=== PATIENT | male | born 1965 | race Caucasian/White ===

== ENCOUNTER → 2019-03-10 06:34 | Outpatient (CLI) | payer OTHER, SELFPAY ==
--- NOTE | 2019-03-10 | DI.MRI.S_ITS ---
PROCEDURE: MR KNEE RT WO CON INDICATIONS: PAIN AND SWELLING TECHNIQUE: Noncontrast sagittal PD fast spin echo and T2 fast spin echo with fat saturation, sagittal 3-D FLASH with fat saturation; coronal T1 spin echo and PD fast spin echo with fat saturation, and axial PD fast spin echo with fat saturation through the knee. COMPARISON: None. FINDINGS: Image quality: Excellent. Menisci: Lateral meniscus appears grossly intact. Medial meniscal tear involving the body with abnormal signal extending to the undersurface. There is also truncation of the free margin of the body Cruciate ligaments: The anterior and posterior cruciate ligaments appear intact. Medial structures: The medial collateral ligament appears intact. Mild semimembranosus insertional tendinopathy. Visualized portions of the pes anserinus tendons appear normal. No abnormal bursal fluid. Lateral structures: The lateral collateral ligament, long and short heads of the biceps femoris tendon appear intact. The popliteus tendon appears normal; the popliteofibular ligament appears intact. The posterosuperior and anteroinferior popliteomeniscal fascicles appear intact. The arcuate and fabellofibular ligaments appear intact, on either side of the lateral inferior geniculate artery. Iliotibial band appears normal. Anterior structures: Quadriceps tendon intact. Thickening of the patellar attachment of the lateral patellofemoral ligament. The medial patellofemoral ligament appears grossly intact There is mild to moderate patellar tendinopathy. Prepatellar and superficial infrapatellar subcutaneous edema/fluid. There is also deep infrapatellar bursal fluid raises the possibility of bursitis Bones and cartilage: No focal marrow contusion or discrete low signal fracture line. Within the medial compartment, mild diffuse partial thickness loss of the femoral and tibial cartilage Within the lateral compartment, grossly intact articular cartilage Within the patellofemoral compartment, diffuse surface fraying of the patellar and femoral trochlear cartilage Joint space: Trace joint effusion. No Stephens's cyst. 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 Thickening of the patellar attachment of the lateral patellofemoral ligament suggests chronic sprain/partial rupture. Medial meniscal tear involving the body Mild joint degeneration. Patellar tendinopathy, versus acute sprain. Dictated by: Bob Birmingham M.D. on 03/10/2019 at 9:58 Approved by: Bob Birmingham M.D. on 03/10/2019 at 10:10
== END ==
PROVIDERS: PCP Family Medicine; Visit Provider Family Medicine
DX: M25.561 Pain in right knee (principal); M25.461 Effusion, right knee; S83.241A Other tear of medial meniscus, current injury, right knee, initial encounter; M17.11 Unilateral primary osteoarthritis, right knee
CPT/HCPCS: 73721

== ENCOUNTER → 2020-08-10 08:27 | Outpatient (CLI) | payer OTHER, SELFPAY ==
--- NOTE | 2020-08-10 | DI.MRI.S_ITS ---
PROCEDURE: MR SHOULDER LT WO CON INDICATIONS: PAIN IN LEFT SHOULDER TECHNIQUE: Noncontrast oblique coronal T2 fast spin echo with fat saturation, oblique sagittal T1 spin echo and T2 fast spin echo with fat saturation, axial T1 spin echo and T2 fast spin echo with fat saturation through the shoulder. COMPARISON: None. FINDINGS: Image quality: Excellent. Rotator cuff: Supraspinatus tendinopathy with partial thickness bursal sided tear and low-grade articular surface fraying. There is infraspinatus tendinopathy, with low-grade articular and bursal surface fraying. Teres minor tendon appears intact. Subscapularis tendinopathy and thickening is present. There is low-grade articular surface fraying. Fatty infiltration of the infraspinatus and teres minor muscles. No definite atrophy of the rotator cuff muscles. Bones and bursae: No bone marrow contusions or fractures. Moderate hypertrophic acromioclavicular joint degeneration. Acromion demonstrates conventional anatomy, without an os acromiale. Moderate subacromial-subdeltoid bursitis. Capsule and soft tissues: Labrum: Ill-defined macerated appearing tear of the superior and posterior labrum there is also fraying of the inferior labrum. No definite posterior subluxed appearance of the humeral head relative to the glenoid to suggest microinstability. Chronic glenoid rim segmental sclerosis and spurring at the posterior superior aspect. There is slight bucket-handle appearance of the superior labral tear although very poorly defined. Long head biceps tendinopathy The rotator interval appears normal, without fibrosis. Coracohumeral ligament intact. IMPRESSION: Supraspinatus tendinopathy partial-thickness bursal sided tear and low-grade articular surface fraying Infraspinatus tendinopathy with low-grade articular and bursal surface tearing paragraphs subscapularis tendinopathy and low-grade articular surface fraying Moderate subacromial-subdeltoid bursitis Ill-defined tear of the labrum, as described above in detail. Dictated by: Bob Birmingham M.D. on 08/12/2020 at 8:35 Approved by: Bob Birmingham M.D. on 08/12/2020 at 8:41
== END ==
PROVIDERS: PCP Family Medicine; Referring Provider Family Medicine; Visit Provider Family Medicine
DX: M25.512 Pain in left shoulder (principal); M75.112 Incomplete rotator cuff tear or rupture of left shoulder, not specified as traumatic; M75.52 Bursitis of left shoulder
CPT/HCPCS: 73221

== ENCOUNTER → 2020-12-23 09:36 | Outpatient (CLI) | payer OTHER, SELFPAY ==
--- NOTE | 2020-12-23 | DI.MRI.S_ITS ---
PROCEDURE: MR KNEE RT WO CON INDICATIONS: Complex tear of medial meniscus, current injury, r TECHNIQUE: Noncontrast sagittal PD fast spin echo and T2 fast spin echo with fat saturation, sagittal 3-D FLASH with fat saturation; coronal T1 spin echo and PD fast spin echo with fat saturation, and axial PD fast spin echo with fat saturation through the knee. COMPARISON: [facility], MR, MR KNEE RT WO CON, 03/10/2019, 6:51. [facility], CR, XR KNEE ARTHRITIC SERIES RT, 12/03/2020, 8:52. FINDINGS: Image quality: Excellent. Menisci: Truncation of the free edge of the anterior horn, body, and posterior horn medial meniscus is present, indicating radial tearing. Lateral meniscus is intact. Cruciate ligaments: The anterior and posterior cruciate ligaments appear intact. Medial structures: The medial collateral ligament appears intact. Visualized portions of the pes anserinus tendons appear normal. No abnormal bursal fluid. Lateral structures: The lateral collateral ligament demonstrates mild T2 signal elevation at the femoral origin. The alea and short heads of the biceps femoris tendon appear intact. The popliteus tendon appears normal. Iliotibial band appears normal. Anterior structures: The quadriceps and patellar tendons appear intact. Mild T2 signal elevation within the quadriceps and patellar tendons at the patellar insertion sites. Patellar alignment is normal. No femoral trochlear dysplasia or ventral trochlear prominence. No edema in the infrapatellar fat pad. Bones and cartilage: No bone marrow contusions or fractures. Bipartite superolateral patella. Moderate articular cartilage loss diffusely overlies the weight-bearing aspects of the medial femoral condyle and medial tibial plateau. Mild articular cartilage loss diffusely overlies the medial and lateral patellar facets. Joint space: There is physiologic knee joint fluid. No Stephens's cyst. Small ganglion cyst along the popliteus. Normal appearing synovial plicae are incidentally noted. IMPRESSION: 1. Medial meniscal tear. 2. Quadriceps and patellar tendinopathy. 3. Medial and patellofemoral compartment articular cartilage loss. 4. Small ganglion cyst along the popliteus. Dictated by: Jes Frost M.D. on 12/23/2020 at 11:34 Approved by: Jes Frost M.D. on 12/23/2020 at 11:37
[2020-12-23 13:35] LABS: COVID19 -Nasal RAPID Negative (Negative)
== END ==
PROVIDERS: PCP Family Medicine; Referring Provider Orthopaedic Surgery; Visit Provider Orthopaedic Surgery
DX: S83.231D Complex tear of medial meniscus, current injury, right knee, subsequent encounter (principal); M67.461 Ganglion, right knee; X58.XXXD Exposure to other specified factors, subsequent encounter
CPT/HCPCS: 73721; 87635

== ENCOUNTER 2024-07-28 08:20 | Day surgery (SDC) | payer OTHER, SELFPAY ==
--- NOTE | 2024-07-28 | PATH_ITS ---
[facility] Accession Number: [id number] No. of containers..01 Tissue . 01 Material submitted: . rectum - RECTAL POLYPS . 01 Diagnosis: RECTAL POLYPS: Hyperplastic polyp x1. Vegetable material. MRV 07/31/2024 1532 Local . 01 Electronically signed: . Bhavin Wright MD, PhD, Pathologist NPI- [id number] . 01 Gross description: . Received in formalin, labeled with two patient identifiers and rectal polyps, is a single lin soft tissue fragment measuring 0.3 cm in greatest dimension with three lin to brown fragments of possible debris ranging from 0.3 cm to 0.6 cm in greatest dimension. All submitted in cassette A1. ([id number]) /R 07/29/2024 1103 Local . 01 Pathologist provided ICD-10: K62.1 . 01 CPT . 118888 Specimen Comment: A courtesy copy of this report has been sent to [facility] Pathology Performed at: [address] [address], [place], [place] [id number] MD Micah Hernandez MD Phone: [phone]
[2024-07-28] MEDS: LACTATED RINGERS 1,000 ML 100 ML IV (08:39)
[2024-07-28 08:48] VITALS: BP 145/91; PULSE 91; RESP 18; TEMP 36.6; O2SAT 98
--- NOTE | 2024-07-28 09:23 | PM.HP.IH.1 ---
History of Present Illness History of Present Illness Date Patient Seen: 07/28/24 Time Patient Seen: 09:23 Chief complaint: SDC Narrative: 59-year-old white male presents for initial screening colonoscopy. No family history of colon cancer, Crohn's disease or ulcerative colitis. No changes in bowel habits [facility] Medical History (Updated 07/28/24 @ 09:25 by Valdez Chavis MD) Colon cancer screening Social History Smoking Status: Never smoker alcohol intake: current Meds Home Medications and Allergies Home Medications Medication Instructions Recorded Confirmed Type sodium,potassium,mag sulfates 17.5 See Rx Instructions PO .COMPLEX 06/29/24 Rx gram-3.13 gram-1.6 gram oral soln #354 mL (Suprep Bowel Prep Kit) aspirin 81 mg tablet,delayed 81 mg PO DAILY 07/28/24 07/28/24 History release metformin 500 mg tablet,extended 500 mg PO DAILY 07/28/24 07/28/24 History release 24 hr Allergies Allergy/AdvReac Type Severity Reaction Status Date / Time No Known Drug Allergies Allergy Verified 07/28/24 08:56 Review of Systems Review of Systems ROS: Yes All systems reviewed with the patient and are negative except as otherwise documented Exam Vital Signs (past 8 hours): - 07/28/24 08:48 Temperature 98 F Pulse Rate 91 H Respiratory Rate 18 Blood Pressure 145/91 H Pulse Oximetry 98 Oxygen Delivery Method Room Air Oxygen Delivery Method Room Air Narrative Exam Narrative: Gen: NAD, sitting comfortably in bed, appears well HEENT: Sclera are anicteric, head is normocephalic and atraumatic, trachea is midline. CV: RRR, no JVD Resp: clear to auscultation bilaterally, equal chest wall movement bilaterally Abd: soft, nontender, normoactive bowel sounds Ext: no edema, full range of motion Neuro: Cranial nerves II-XII grossly intact, no focal deficits Skin: No erythema or ecchymosis Assessment & Plan Assessment and plan (1) Colon cancer screening: Status: Acute Assessment & Plan narrative: Patient presents for colonoscopy Risks, benefits, alternatives to colonoscopy explained, including but not limited to bowel perforation or other serious complication requiring surgery at less than 1 in 5000 colonoscopies, abdominal pain, cramping or bleeding and less than 1% of colonoscopies, and the chances that we find a diagnosis that would require further intervention of about 2%. Patient agrees to proceed. Time-Based Coding :: [TOTAL MINUTES] spent with patient and on the chart (including review of chart, obtaining history, exam, reviewing outside data, placing orders, documenting exam and treatment plan, and counseling patient) on [DATE]. [employer] Document charge(s): No
--- NOTE | 2024-07-28 09:49 | PM.OP.COLON ---
Operative Date/Time/Diagnoses Date of procedure: 07/28/24 Time of procedure: 09:50 Pre-op diagnosis: Colon screening Post-op diagnosis: same (Benign rectal polyps) Procedure & Clinicians Study performed: Colonoscopy with cold snare polypectomy rectal polyps x2 Same procedure as scheduled: Yes Indications: Colon screening Surgeon: Valdez Chavis Procedure Notes SCOAP/Timeout: Performed Procedure in detail: Time-out was performed. Mac was induced. Patient was placed in left lateral decubitus position. The perineum was inspected without any gross abnormality. Lubricated pediatric colonoscope was inserted and advanced to the cecum. The terminal ileum was intubated. The colonoscope was withdrawn slowly inspecting the circumference of the colon. Two very small polyps were noted in the rectum, removed with cold snare polypectomy. These were completely removed and retrieved. They were benign appearing. Very small polyps may have been missed, prep quality was adequate. Retroflexed view of the rectum showed small, non prolapsed nonbleeding internal hemorrhoids. The scope was withdrawn the patient was taken to PACU in good condition. Scope withdrawal time: 11 Sedation minutes: 21 Findings: internal hemorrhoids and polyp(s) Specimen(s): other (1. Rectal polyps x2) Complications: none Impression: Benign-appearing polyps Post-procedure Recommendations: Colonoscopy in 10 years (Next colonoscopy in 7 year) Follow up: as needed Disposition: PACU
[2024-07-28 09:52] VITALS: BP 117/66; PULSE 87; RESP 14; TEMP 36.1; O2SAT 95
[2024-07-28 09:56] VITALS: BP 118/66; PULSE 86; RESP 14; O2SAT 98
[2024-07-28 10:01] VITALS: BP 118/71; PULSE 88; RESP 14; O2SAT 96
[2024-07-28 10:05] VITALS: BP 130/76; PULSE 85; RESP 14; TEMP 36.1; O2SAT 96
== END 2024-07-28 10:15 | disposition home or self-care (01) ==
PROVIDERS: PCP Family Medicine; Referring Provider Surgery; Visit Provider Surgery
PROC: 0DJD8ZZ Inspection of Lower Intestinal Tract, Via Natural or Artificial Opening Endoscopic (ICD-10-PCS; CPT 45378; principal; 2024-07-28 09:30)
DX: Z12.11 Encounter for screening for malignant neoplasm of colon (principal); K64.8 Other hemorrhoids; K62.1 Rectal polyp
CPT/HCPCS: 45385; J2704

== ENCOUNTER → 2024-08-25 06:53 | Outpatient (CLI) | payer OTHER, SELFPAY ==
--- NOTE | 2024-08-25 06:55 | DI.CT.S_ITS ---
PROCEDURE: CT SINUS SCREEN WO CON INDICATIONS: CHRONIC OR RECURRENT SINUSITIS/RHINOSINUSITIS TECHNIQUE: Noncontrast 3.0 mm axial images acquired from the frontal sinuses to the mid-sella, with coronal and sagittal reformats. For radiation dose reduction, the following was used: automated exposure control, adjustment of mA and/or kV according to patient size. COMPARISON: None. FINDINGS: Image quality: Excellent. Sinuses: There is complete occlusion of the right maxillary sinus extending to the ethmoid air cells. There is significant mucosal thickening in the right frontal sinus. Mild mucosal thickening is present in the left maxillary sinus with scattered areas of mild mucosal thickening in the left frontal sinus as well as left ethmoid air cells. Minimal sphenoid sinus mucosal thickening is present. No fluid levels. Ostiomeatal Complexes: There is complete occlusion of the right ostiomeatal complex. Left side is patent. Miscellaneous: Visualized intra-orbital contents are normal. No karen bullosa or paradoxical turbinate curvature. Leftward nasal septal deviation. IMPRESSION: Prominent mucosal thickening particularly within the right-sided sinuses as above with occlusion of the right ostiomeatal complex. Dictated by: Letty Stein M.D. on 08/25/2024 at 16:48 Approved by: Letty Stein M.D. on 08/25/2024 at 16:51
== END ==
PROVIDERS: Referring Provider Otolaryngology; Visit Provider Otolaryngology
DX: J32.4 Chronic pansinusitis (principal); J34.2 Deviated nasal septum; J34.89 Other specified disorders of nose and nasal sinuses
CPT/HCPCS: 70486

== ENCOUNTER → 2024-09-22 06:53 | Outpatient (CLI) | payer OTHER, SELFPAY ==
--- NOTE | 2024-09-22 06:54 | DI.CT.S_ITS ---
PROCEDURE: CT SINUS SCREEN WO CON INDICATIONS: CHRONIC PANSINUSITIS,FACIAL PAIN TECHNIQUE: Noncontrast 3.0 mm axial images acquired from the frontal sinuses to the mid-sella, with coronal and sagittal reformats. For radiation dose reduction, the following was used: automated exposure control, adjustment of mA and/or kV according to patient size. COMPARISON: [facility], CT, CT SINUS SCREEN WO CON, 08/25/2024, 7:06. FINDINGS: Image quality: Excellent. Maxillary Sinuses: No bony remodeling or destruction. Moderate right maxillary sinus mucosal thickening is improved compared to prior. Left maxillary sinus is clear. Ethmoid Air Cells: No bony remodeling or destruction. Mild mucosal thickening of the anterior right ethmoid air cells is improved compared to prior. Sphenoid Sinuses: No bony remodeling or destruction. Sinuses are clear. Frontal Sinuses: No bony remodeling or destruction. Mild bilateral mucosal thickening, improved on the right. Ostiomeatal Complexes: Ostiomeatal complexes are opacified on the right and patent on the left. No Rupert cells. Miscellaneous: Visualized intra-orbital contents are normal. No karen bullosa or paradoxical turbinate curvature. No nasal septal deviation. IMPRESSION: Improvement in paranasal sinus disease as described above. Dictated by: Constantine Dash M.D. on 09/22/2024 at 11:14 Approved by: Constantine Dash M.D. on 09/22/2024 at 11:17
== END ==
PROVIDERS: Referring Provider Otolaryngology; Visit Provider Otolaryngology
DX: J32.4 Chronic pansinusitis (principal); R51.9 Headache, unspecified
CPT/HCPCS: 70486